=== PATIENT | female | born 1965 | race Caucasian/White ===

== ENCOUNTER → 2023-06-19 | Outpatient (CLI) | payer MEDICAID, SELFPAY ==
[2023-06-19 12:28] LABS: ALB/GLOB Ratio 0.8 RATIO (0.9-2.4); AST(SGOT) 17 U/L (15-37); Alanine Aminotransfer ALT/SGPT 25 U/L (13-56); Albumin, Serum 3.4 g/dL (3.2-5.0); Alkaline Phosphatase 58 U/L (45-117); Anion Gap 3 (5-15); BUN 31 mg/dL (7-18); BUN/Creat Ratio 28.4 RATIO (10-20); Calcium,Total 9.1 mg/dL (8.5-10.1); Chloride 106 mmol/L (98-107); Creatinine, Serum 1.09 mg/dL (0.55-1.02); EST Glomerular Filtration Rate 55 mL/min (>60); Est Glom Filt Rate - Afr Amer 66 mL/min (>60); Globulin 4.5 g/dL (2.2-4.2); Glucose 102 mg/dL (74-106); Potassium 4.6 mmol/L (3.5-5.1); Protein, Total 7.9 g/dL (6.4-8.2); Sodium Level 136 mmol/L (136-145); Thyroid Stim Hormone (TSH) 1.39 uIU/mL (0.358-3.74)
== END | disposition home or self-care (01) ==
LOC: MTLAB 10:34
PROVIDERS: PCP Internal Medicine; Referring Provider Internal Medicine; Visit Provider Internal Medicine
DX: E03.9 Hypothyroidism, unspecified (principal)
CPT/HCPCS: 36415; 80053; 84439; 84443

== ENCOUNTER → 2023-07-09 | Outpatient (CLI) | payer MEDICAID, SELFPAY ==
--- NOTE | 2023-07-09 15:36 | RAD_ITS ---
STUDY: X-RAY CHEST REASON FOR EXAM: Female, 57 years old. Pulmonary fibrosis. Shortness of breath. TECHNIQUE: Frontal and lateral views of the chest. COMPARISON: None. FINDINGS: Mild hyperinflation. There is no demonstrated pleural abnormality. Normal size heart. Normal mediastinum and ryann. Normal visualized pulmonary arteries. Aortic tortuosity. Normal visualized thoracic spine. Normal visualized ribs, clavicles, and shoulders. No abnormality of the visualized soft tissue structures of the upper abdomen. RAD/Chest PA and Lateral IMPRESSION: Mild hyperinflation with no acute or active cardiopulmonary disease. Electronically Signed: Maverick Jane MD at 15:48 EDT ,
[2023-07-09 17:58] LABS: AST(SGOT) 16 U/L (15-37); Alanine Aminotransfer ALT/SGPT 26 U/L (13-56); Albumin, Serum 3.3 g/dL (3.2-5.0); Alkaline Phosphatase 52 U/L (45-117); Cholesterol 162 mg/dL (200); Globulin 4.2 g/dL (2.2-4.2); High Density Lipoprotein 65 mg/dL; Protein, Total 7.5 g/dL (6.4-8.2); Triglycerides 94 mg/dL; Very Low Density Lipoprotein 19 mg/dL (5-40)
== END | disposition home or self-care (01) ==
LOC: RAD 15:29
PROVIDERS: PCP Internal Medicine; Referring Provider Internal Medicine Cardiovascular Disease; Visit Provider Internal Medicine Cardiovascular Disease
DX: E78.5 Hyperlipidemia, unspecified (principal); J84.10 Pulmonary fibrosis, unspecified; I25.10 Atherosclerotic heart disease of native coronary artery without angina pectoris; R06.02 Shortness of breath
CPT/HCPCS: 36415; 71046; 80061; 80076

== ENCOUNTER → 2023-08-20 | Outpatient (CLI) | payer MEDICAID, SELFPAY ==
--- NOTE | 2023-08-20 07:42 | ECHOCS_ITS ---
Reason For Study: HYPERLIPIDEMIA, CAD/ASHD Procedure This was a 2D Doppler, Color Flow transthoracic echocardiogram. The study was technically difficult. Due to body habitus. Contrast injection was performed. Exam performed in department. Left Ventricle Normal LV size. Left ventricular systolic function is normal. The left ventricular ejection fraction is 60 %. Stage 1 diastolic dysfunction. No regional wall motion abnormalities noted. Right Ventricle Normal RV size. Normal systolic function. Atria Normal left atrium. Normal right atrium. Mitral Valve Normal mitral valve. Tricuspid Valve Normal tricuspid valve. Mild (1+) tricuspid valve insufficiency. Pulmonary artery systolic pressure is 26 mmHg. Aortic Valve Trisinus/trileaflet aortic valve. Pulmonic Valve Normal pulmonic valve. Great Vessels Normal aortic root. The pulmonary artery is normal size. Normal inferior vena cava. Pericardium/Pleural No pericardial effusion. Medication 22 gauge I.V. with prn adaptor inserted into right arm. Diluted definity 2.0ml given slow IV push to enhance endocardial definition. MMode/2D Measurements & Calculations LVIDd: 4.1 cm IVSd: 1.1 cm Ao root diam: 2.7 cm LVIDs: 2.9 cm LVPWd: 1.0 cm RVDd: 2.9 cm FS: 29.1 % LAV(MOD-bp): 32.0 ml LVAd ap4: 24.2 cm2 SV(MOD-sp4): 36.8 ml LAV(MOD-bp) Indexed: 17.1 ml/m2 LVLd ap4: 7.6 cm LAV(MOD-sp2): 30.3 ml EDV(MOD-sp4): 62.5 ml LAV(MOD-sp4): 30.7 ml EDV(sp4-el): 65.2 ml LVAs ap4: 13.4 cm2 LVLs ap4: 6.0 cm ESV(MOD-sp4): 25.7 ml ESV(sp4-el): 25.4 ml EF(MOD-sp4): 58.9 % EF(sp4-el): 61.1 % SV(sp4-el): 39.9 ml LA A4 area: 13.1 cm2 LA dimension(2D): 3.7 cm RA A4 area: 9.7 cm2 TAPSE: 2.1 cm Time Measurements MV dec time: 0.22 sec Doppler Measurements & Calculations MV E max johnnie: 61.8 cm/sec Lat Peak E' Johnnie: 10.2 cm/sec Med Peak E' Johnnie: 6.3 cm/sec MV A max johnnie: 90.6 cm/sec E/E' lat: 6.1 E/E' med: 9.8 MV E/A: 0.68 MV V2 max: 90.6 cm/sec MV P1/2t max johnnie: 62.5 cm/sec Ao V2 max: 161.6 cm/sec MV max P.3 mmHg MV P1/2t: 71.0 msec Ao max P.4 mmHg MV V2 mean: 42.3 cm/sec MV dec slope: 257.7 cm/sec2 Ao V2 mean: 107.5 cm/sec MV mean P.87 mmHg MVA(P1/2t): 3.1 cm2 Ao mean P.2 mmHg MV V2 VTI: 20.7 cm Ao V2 VTI: 26.5 cm AV (velocity ratio): 0.84 LV V1 max: 127.1 cm/sec PA V2 max: 141.4 cm/sec TR max johnnie: 241.4 cm/sec LV V1 max P.5 mmHg PA V2 mean: 88.8 cm/sec TR max P.3 mmHg LV V1 mean P.9 mmHg LV V1 mean: 77.9 cm/sec LV V1 VTI: 22.4 cm ECHO/Echo Complete W/ Contrast Interpretation Summary Normal LV size. Left ventricular systolic function is normal. The left ventricular ejection fraction is 60 %. Stage 1 diastolic dysfunction. Contrast injection was performed. Ordering Physician: Chito Pruett Referring Physician: Josefina Langley Performed By: Palmira Guerra, ALYSHA, RVT
== END | disposition home or self-care (01) ==
LOC: CVS 07:37
PROVIDERS: PCP Internal Medicine; Referring Provider Internal Medicine Cardiovascular Disease; Visit Provider Internal Medicine Cardiovascular Disease
DX: E78.5 Hyperlipidemia, unspecified (principal); I25.10 Atherosclerotic heart disease of native coronary artery without angina pectoris
CPT/HCPCS: 93306; C8929

== ENCOUNTER → 2023-08-21 | Outpatient (CLI) | payer MEDICAID, SELFPAY ==
--- NOTE | 2023-08-21 08:30 | STEWCON_ITS ---
Reason For Study: CAD Stress Results Protocol: Dobtuamine Stress Echo Maximum Predicted HR: 163 bpm Target HR: 139 bpm % Maximum Predicted HR: 84 % Heart Stage Duration Rate BP Dose Comment (mm:ss) (bpm) Baseline 64 98/57 Patient denies chest pain Stage 1 4:44 99 95/50 10.00Patient denies chest pain Stage 2 3:00 110 91/52 20.00Patient denies chest pain Stage 3 3:00 126 101/5730.00Patient denies chest pain Stage 4 8:26 137 104/6540.00Patient denies chest pain Patient denies any chest pain, dizzyness, or shortness of Recovery 99 98/66 breath. Stress Duration: 19:10 mm:ss Maximum Stress HR: 137 bpm Baseline Echocardiogram Findings Stress Echo Wall motion Data Resting WM Intermediate WM Stress WM Doppler Measurements & Calculations TR max regi: 207.1 cm/sec TR max P.2 mmHg ECHO/Stress Test Echo W/Contrast Interpretation Summary Dobutamine stress echo Resting EKG demonstrates normal sinus rhythm with a rate of 69 bpm normal inter vals are noted the patient underwent dobutamine infusion starting at 10 mcg/kg/min and increasing to the peak of 40 mcg/kg/min. The maximum heart rate attained was noted to be 137 bpm which was 8 4% of max impacted heart rate the maximum workload was 1 metabolic equivalent. At rest there were no ST or T wave changes noted suggest ischemia and at peak infusion no ST or T wave changes wer e noted suggest ischemia. The peak blood pressure was 104/65 mmHg. Stress echocardiogram. Resting and stress echocardiographic with obtained with dobutamine enhancement. The resting ejection fraction was 60% and with peak dobutamine infusion peak ejection fraction was 7 5% with no wall motion abnormalities noted. Conclusion: Dobutamine stress echocardiogram with no evidence of ischemia. Ordering Physician: Anselmo Sears Referring Physician: Anselmo Sears Performed By: Kingston Salazar RCS
== END | disposition home or self-care (01) ==
LOC: CVS 08:27
PROVIDERS: PCP Internal Medicine; Referring Provider Nurse Practitioner Family; Visit Provider Nurse Practitioner Family
DX: R06.02 Shortness of breath (principal); E11.9 Type 2 diabetes mellitus without complications; I25.10 Atherosclerotic heart disease of native coronary artery without angina pectoris; E78.5 Hyperlipidemia, unspecified
CPT/HCPCS: 93350; 93017; J7040; Q9957; A4216; C8928

== ENCOUNTER → 2023-12-19 | Outpatient (CLI) | payer MEDICAID, SELFPAY ==
[2023-12-19 15:41] LABS: ALB/GLOB Ratio 0.8 RATIO (0.9-2.4); AST(SGOT) 22 U/L (15-37); Alanine Aminotransfer ALT/SGPT 37 U/L (13-56); Albumin, Serum 3.3 g/dL (3.2-5.0); Alkaline Phosphatase 89 U/L (45-117); Anion Gap 8 (5-15); BUN 15 mg/dL (7-18); BUN/Creat Ratio 14.9 RATIO (10-20); Chloride 106 mmol/L (98-107); Creatinine, Serum 1.01 mg/dL (0.55-1.02); EST Glomerular Filtration Rate 60 mL/min (>60); Est Glom Filt Rate - Afr Amer 72 mL/min (>60); Globulin 4.2 g/dL (2.2-4.2); Glucose 114 mg/dL (74-106); Potassium 3.9 mmol/L (3.5-5.1); Protein, Total 7.5 g/dL (6.4-8.2); Sodium Level 139 mmol/L (136-145); T4 Free Direct 0.89 ng/dL (0.76-1.46)
[2023-12-19 16:07] LABS: Hemoglobin A1c 5.8 % (3.8-5.6)
== END | disposition home or self-care (01) ==
LOC: MTLAB 13:28
PROVIDERS: PCP Internal Medicine; Referring Provider Internal Medicine; Visit Provider Internal Medicine
DX: E11.9 Type 2 diabetes mellitus without complications (principal); I10 Essential (primary) hypertension; E03.9 Hypothyroidism, unspecified
CPT/HCPCS: 36415; 80053; 83036; 84439; 84443

== ENCOUNTER → 2024-07-16 | Outpatient (CLI) | payer MEDICAID, SELFPAY ==
[2024-07-16 12:11] LABS: AST(SGOT) 40 U/L (<=31); Alanine Aminotransfer ALT/SGPT 39 U/L (<=34); Albumin, Serum 3.9 g/dL (3.5-5.0); Alkaline Phosphatase 60 U/L (35-104); Bilirubin, Direct 0.14 mg/dL (0.00-0.30); Cholesterol 149 mg/dL (<=200); Globulin 3.6 g/dL (2.2-4.2); High Density Lipoprotein 47 mg/dL; Low Density Lipoprotein Calc. 72 mg/dL; Protein, Total 7.6 g/dL (5.9-8.4); Total Bilirubin 0.28 mg/dL (0.00-1.30); Triglycerides 153 mg/dL; Very Low Density Lipoprotein 31 mg/dL (5-40); cholesterol:hdl ratio screen 3.18
== END | disposition home or self-care (01) ==
LOC: LAB 09:45
PROVIDERS: PCP Family Medicine; Referring Provider Student in an Organized Health Care Education/Training Program; Visit Provider Student in an Organized Health Care Education/Training Program
DX: E78.00 Pure hypercholesterolemia, unspecified (principal)
CPT/HCPCS: 36415; 80061; 80076